=== PATIENT | female | born 1965 | race Caucasian/White ===

== ENCOUNTER 2021-07-10 17:56 | Emergency (ER) | payer MEDICAID ==
[~2021-07-10] VITALS: Ht 165.1 cm; Wt 66.0 kg
[2021-07-10] MEDS ORDERED: PROPOFOL 200MG/20ML VIAL IV ONE (18:30)
[2021-07-10 21:49] VITALS: BP 150/92
== END 2021-07-10 21:45 | disposition home or self-care (01) ==
LOC: ER 17:56 → CANBEDREQ 22:34
DX: S52.292A Other fracture of shaft of left ulna, initial encounter for closed fracture (principal); S52.392A Other fracture of shaft of radius, left arm, initial encounter for closed fracture; W01.0XXA Fall on same level from slipping, tripping and stumbling without subsequent striking against object, initial encounter; Y93.89 Activity, other specified; Y92.89 Other specified places as the place of occurrence of the external cause; Y99.8 Other external cause status
CPT/HCPCS: 25605; 73090; 99152; 99285; J2704; A4565